=== PATIENT | female | born 1945 | race Caucasian/White ===

== ENCOUNTER 2021-02-23 11:01 | Emergency (ER) | payer MEDICARE, OTHER ==
[2021-02-23] MEDS ORDERED: Lidocaine/EPINEPHrine/Tetracaine Soln 1 ML TOP ONE (11:25)
--- NOTE | 2021-02-23 11:31 | EDM.PDOC ---
ED HPI GENERAL MEDICAL PROBLEM - General Chief Complaint: Laceration Stated Complaint: HEAD LAC Time Seen by Provider: 02/23/21 11:18 Source of Information: Reports: Patient, RN Notes Reviewed, Other (health care recruiter) History Limitations: Reports: No Limitations - History of Present Illness INITIAL COMMENTS - FREE TEXT/NARRATIVE: Patient is a 75-year-old female who is brought into the ER by her caregiver today for the evaluation of a head laceration. The patient was at home, and ended up tumbling down 2-3 steps as she just missed the initial step. She then struck her head on a thin rimmed plastic garbage can, which resulted in roughly 3 cm curvilinear laceration to the patient's left forehead, bleeding is controlled at this time. The patient does have a history of dementia, and the caregiver states that she is not acting inappropriate for herself at this time. She notes that she is forgetful, and has some slight balance issues due to the dementia. Patient follows all commands, and no visible neuro deficits are elicited through history. She has not had any fevers or chills, cough or shortness of breath, nausea/vomiting/diarrhea. Spring Former Hand states that she believ es she is up-to-date on her vaccinations but was unsure of her last tetanus booster. Patient is complaining of pain right at the site of the wound, and she states it does not go anywhere else in her head. She is not on blood thinners. Primary care provider is through [facility]. left forehead Pain Score (Numeric/FACES): 4 - Related Data Allergies Allergy/AdvReac Type Severity Reaction Status Date / Time No Known Allergies Allergy Verified 02/23/21 11:14 Home Meds: Home Meds cephALEXin [Keflex] 500 mg PO TID 7 Days #21 cap 02/23/21 [Rx] Past Medical History Cardiovascular History: Reports: Hypertension Neurological History: Reports: Alzheimers Disease Social & Family History - Tobacco Use Tobacco Use Status *Q: Never Tobacco User - Recreational Drug Use Recreational Drug Use: No ED ROS GENERAL - Review of Systems Review Of Systems: Comprehensive ROS is negative, except as noted in HPI. ED EXAM, SKIN/RASH Exam: See Below Exam Limited By: No Limitations General Appearance: Alert, WD/WN, No Apparent Distress Ears: Normal External Exam, Normal Canal, Hearing Grossly Normal, Normal TMs Nose: Normal Inspection Throat/Mouth: Normal Inspection, Normal Lips, Normal Teeth, Normal Gums, Normal Oropharynx, Normal Voice, No Airway Compromise Head: Normocephalic, Other (3cm curvilinear laceration to Left forehead. ). No: Facial Swelling, Sinus Tenderness Neck: Normal Inspection, Supple, Non-Tender, Full Range of Motion Respiratory/Chest: No Respiratory Distress, Lungs Clear, Normal Breath Sounds, No Accessory Muscle Use, Chest Non-Tender Cardiovascular: Normal Peripheral Pulses, Regular Rate, Rhythm, No Edema Peripheral Pulses: 2+: Radial (L), Radial (R) Extremities: Normal Inspection, Normal Range of Motion, Normal Capillary Refill Neurological: Alert, Oriented, Normal Cognition (for herself), No Motor/Sensory Deficits Psychiatric: Normal Affect, Normal Mood Skin: Warm, Dry, Normal Color, No Rash, Wound/Incision (3cm curvilinear lac to Left forehead, the skin area around this is somewhat tender. Bleeding is controlled) Location, Skin: Face ED SKIN PROCEDURES - Laceration/Wound Repair Left Forehead Appearance: Subcutaneous, Linear (curvilinear), Moderately Contaminated Distal NVT: Neuro & Vascular Intact, No Tendon Injury Anesthetic Type: Topical (LET applied to allow wound cleansing; with 5mL 1% lido instilled for laceration repair) Local Anesthesia - Lidocaine (Xylocaine): 1% Plain Local Anesthetic Volume: 5cc Skin Prep: Chlorhexidine (Hibiciens), Saline Exploration/Debridement/Repair: Wound Explored, In a Bloodless Field, Explored to Base, Foreign Material Removed (moderate amounts of dirt like debris removed from wound) Closed with: Sutures Lac/Wound length In cm: 3 Suture Size: 4-0 # of Sutures: 11 Suture Type: Prolene, Interrupted, Simple Sterile Dressing Applied: Nurse Tetanus Status Addressed: Yes (updated d/t dirt in wound) Complications: No Course - Vital Signs Last Recorded V/S: Last Vital Signs Temp 97.5 F 02/23/21 11:10 Pulse 95 02/23/21 11:10 Resp 18 02/23/21 11:10 BP 144/86 H 02/23/21 11:10 Pulse Ox 95 02/23/21 11:10 - Orders/Labs/Meds Orders: Active Orders 24 hr Category Date Time Status Vaccines to be Administered [RC] PER UNIT ROUTINE Care 02/23/21 13:05 Ordered Meds: Medications Discontinued Medications Generic Name Dose Route Start Last Admin Trade Name Vera PRN Reason Stop Dose Admin Diphtheria/Tetanus/Acell Pertussis 0.5 ml 02/23/21 13:05 Diphtheria,Pertussis(Acell),Tetanus Vaccine 0.5 Ml Syringe IM 02/23/21 13:06 .ONCE ONE Lidocaine HCl 10 ml 02/23/21 12:11 02/23/21 12:37 Lidocaine 1% 10 Ml Mdv INJECT 02/23/21 12:12 10 ml ONETIME ONE Administration Lidocaine/Tetracaine 5 ml 02/23/21 11:25 02/23/21 11:43 Lidocaine/Epinephrine/Tetracaine Soln 1 Ml TOP 02/23/21 11:26 5 ml ONETIME ONE Administration Departure - Departure Time of Disposition: 11:36 Disposition: Home, Self-Care 01 Condition: Good Clinical Impression: Head injury Qualifiers: Encounter type: initial encounter Qualified Code(s): S09.90XA - Unspecified injury of head, initial encounter Forehead laceration Qualifiers: Encounter type: initial encounter Qualified Code(s): S01.81XA - Laceration without foreign body of other part of head, initial encounter - Discharge Information *PRESCRIPTION DRUG MONITORING PROGRAM REVIEWED*: No *COPY OF PRESCRIPTION DRUG MONITORING REPORT IN PATIENT JESSICA: No Prescriptions: cephALEXin [Keflex] 500 mg PO TID 7 Days #21 cap Instructions: Sutures, [place], or Adhesive Wound Closure, [id number] Referrals: PCP,None [Primary Care Provider] - Forms: ED Department Discharge Additional Instructions: You have been evaluated in the ED for your laceration. Sutures will need to stay in for [address] performed at today's visit was unremarkable for any bleeds/fractures/other acute injuries. Your tetanus booster was updated at today's visit, due to the dirt in the wound tract. You may return to the ED or any clinic for removal. Please keep this area clean and dry, you may cleanse with regular soap and water. No vigorous scrubbing. Please try to avoid submerging the affected area in water for prolonged periods of time until the sutures are removed. Watch out for signs of infection like increased redness, swelling, pain at the laceration site, or if you should develop any fevers or chills. You were placed on cephalexin, an antibiotic due to the dirt in the wound. Dosing will be 1 tablet 3 times a day for the next 7 days. This medication was electronically sent to [facility]. Please return to ED if your symptoms change or worsen. Sepsis Event Note (ED) - Evaluation Sepsis Screening Result: No Definite Risk - Focused Exam Vital Signs: Vital Signs Temp Pulse Resp BP Pulse Ox 02/23/21 11:10 97.5 F 95 18 144/86 H 95 - My Orders Last 24 Hours: My Active Orders 02/23/21 13:05 Vaccines to be Administered [RC] PER UNIT ROUTINE - Assessment/Plan Last 24 Hours: My Active Orders 02/23/21 13:05 Vaccines to be Administered [RC] PER UNIT ROUTINE
--- NOTE | 2021-02-23 11:59 | CT ---
Head CT Technique: Multiple axial sections through the brain were obtained. Intravenous contrast was not utilized. Reconstructed coronal images were obtained. Comparison: No prior intracranial imaging is available. Findings: Ventricles along with basal cisterns and sulci over the convexities are mildly prominent. Diminished density is noted within the periventricular and subcortical white matter which is most likely due to small vessel ischemic demyelination. No other abnormal parenchymal densities are appreciated. No evidence of intracranial hemorrhage. No midline shift or mass-effect is seen. Bone window settings were reviewed. Visualized mastoid sinuses and paranasal sinuses show nothing acute. No acute calvarial abnormality is appreciated. Impression: 1. Senescent change as described above. 2. Nothing acute is appreciated on noncontrast head CT exam. Diagnostic code #2
[2021-02-23] MEDS ORDERED: Lidocaine 1% 10 ML MDV INJECT ONE (12:11)
[2021-02-23] MEDS ORDERED: Diphtheria,Pertussis(Acell),Tetanus Vaccine 0.5 ML Syringe IM ONE (13:05)
== END 2021-02-23 13:45 | disposition home or self-care (01) ==
LOC: JD.ED 11:01
DX: S01.81XA Laceration without foreign body of other part of head, initial encounter (principal); S09.90XA Unspecified injury of head, initial encounter; Z23 Encounter for immunization; W10.9XXA Fall (on) (from) unspecified stairs and steps, initial encounter
CPT/HCPCS: 12013; 70450; 70450-26; 90471; 90715; 99283; 99283-25